=== PATIENT | female | born 1990 | race Caucasian/White ===

== ENCOUNTER 2016-02-18 14:31 | Emergency (ER) | payer MEDICAID ==
[~2016-02-18] VITALS: Ht 162.6 cm; Wt 45.4 kg
[~2016-02-18 14:31] MED LIST: MOTRIN 600MG.600 MG PO; ZOFRAN ODT4 MG PO
--- NOTE | 2016-02-18 16:00 | Emergency Room Report ---
History of Present Illness Time Seen by MD Hughes Presenting Problem in Triage Pt arrived:Walked Presenting Problem:PT STATES PRODUCTIVE COUGH WITH YELLOW/WHITE SPUTUM FOR TWO WEEKS. STATES HISTORY OF PLEURISY AND STATES PAIN AND COUGH FEEL THE SAME. DENIES ANY OTHER SYMPTOMS. STATES CHEST TIGHTNESS AND PAIN WHEN SHE COUGHS. Onset of symptoms date/time:/ or onset unknown for:MEDICAL HX UNKNOWN Treatment Prior to Arrival: PT STATES TAKING NAPROXEN AT [employer] Provided by: SELF Sepsis Risk Assessment: Temp: 98.2 B/P: 109/58 MAP: 87 Pulse: 65 Resp: 16 Recent fever? N Clinical Suspician of Infection? N Mental Status: 1 - Regular (Normal Baseline) Sepsis Risk:Low Sepsis Risk Have you (or family members/close friends) recently traveled outside the [place]? N If Yes, where/when: Have you had exposure to infectious disease within the past month? N TB? Other? Specify: Comment The patient complains of chest pain. She says she got sick 2 weeks ago with a cough. She is coughing up "clearish yellow". No fever. One week ago she developed chest pain on the RIGHT side of her chest that increases with coughing , movement, and breathing. She has had pleurisy in the past and this feels the same. ALLERGIES Coded Allergies: hydrocodone (NA-NAUSEA 09/24/15) History Medical History General CAD? No Angina: No FL: No Hypertension? No Hyperlipidemia? No CHF? No DVT? No PE? No COPD? No Asthma? No Anemia? No GERD? No Gastric ulcers? No GI Bleed? No Hernia? No Thyroid Problems? No Hypothyroidism? No CVA? No Seizures? No Diabetes? No Renal Insuffiency? No End Stage Renal Disease? No UTI? No Stones? No GB Disease: No Nephritic Syndrome? No Asplenia? No Hepatitis? No Sickle Cell Disease? No Arthritis? No Migraines? No Cataracts? No Glaucoma? No MRSA? No HIV? No TB? No Anxiety? No Depression? No Cancer? No More? No Immunization Hx DT/Tetanus Unknown Surgical Hx Previous Surgery?Y TUBAL RATE MARKER Hx LMP Now Social History Smoking Hx Smoker: Current Some Day Smoker Tobacco: Yes Type Cigarettes Alcohol Alcohol: No Review of Systems All Other Systems Reviewed and Negative Constitutional denies fever Respiratory cough Cardiovascular chest pain Physical Exam Vital Signs Vital Signs Date Time Temp Pulse Resp B/P Pulse O2 O2 Flow FiO2 Ox Delivery Rate 02/17 1526 65 16 109/58 100 02/17 1435 98.2 60 20 117/72 97 General Appearance normal appearance, WD/WN, sitting upright using cellular phone, no acute distress Eye Exam - bilateral eye normal exam, bilateral eye PERRL, bilateral eye EOMI Ear, Nose, Throat hearing grossly normal, normal ENT inspection Neck normal inspection, non-tender, supple, full range of motion Respiratory Status Yes: trachea midline, chest symmetrical, tender on palpation (reproducible RIGHT chest). No: respiratory distress. Lung Sounds bilateral: normal breath sounds, lungs clear. Cardiovascular normal exam, regular rate/rhythm, no peripheral edema, no gallop, no JVD, no murmur, no rub, normal peripheral pulses Peripheral Pulses Pulses normal Yes Gastrointestinal normal bowel sounds, normal exam, non tender, soft, no organomegaly Back normal inspection, no CVA tenderness, no vertebral tenderness Extremities non-tender, normal range of motion, normal inspection Neurologic alert, oriented x 3 Mental status normal mood/affect Skin intact, normal color, warm/dry Medical Decision Making LABS/Meds/Orders Pt receiving controlled substance in ED? No Results/Orders Orders Procedure Date/time Status CHEST(2 VIEWS-NOT PORTABLE) 02/17 1441 Active URINE 02/17 1441 Complete XRAY/CT/US XRAY/CT/US XRAY chest Comment X-ray interpreted by Iraj Tenorio M.D. No infiltrate, pneumothorax, pleural effusion, or wide mediastinum. Departure Departure Disposition DC Home or Self Care(routine) Clinical Impression Primary Impression: Acute bronchitis Qualifiers: Bronchitis organism: unspecified organism Qualified Code: J20.9 - Acute bronchitis, unspecified Secondary Impressions: Chest wall pain, Pleurisy Condition STABLE Referrals QUENTIN CARTAGENA (Family) Patient Instructions DI for Acute Bronchitis, DI for Pleurisy Additional Instructions Additional instructions for ACUTE BRONCHITIS: Antibiotics are not recommended for acute bronchitis. Use Tylenol or Ibuprofen of pain or fever. Rest and plenty of fluids. Return immediately if you have an uncontrollable fever greater than 102 degrees, severe headache or neck stiffness , difficulty breathing or shortness of breath, persistent vomiting, severe sore throat or inability to swallow. See your physician if not improving in 4-5 days. Prescriptions Current Visit Scripts Naproxen (Naprosyn 500MG Tab) 500 MG PO BID #14 TAB Benzonatate (Tessalon Perle) 100 MG PO TID #15 SGL ED Critical Care Critical Care No at 1604
[2016-02-18] MEDS ORDERED: NAPROSYN500 M1 PO (16:08)
[2016-02-18] MEDS ORDERED: TESSALON PERLE100 M1 PO (16:08)
[2016-02-18 16:12] VITALS: BP 114/69
--- NOTE | 2016-02-18 17:06 | RADIOLOGY REPORT PS360 ---
CHEST(2 VIEWS-NOT PORTABLE) HISTORY: Cough with chest pain COUGH COMPARISON: None available FINDINGS: The cardiomediastinal silhouette and pulmonary vascularity are within normal limits. The lungs are clear without infiltrates, suspicious nodules, or pleural effusions. No acute bony abnormalities. Mild pectus deformity. Calcified granuloma right lung base. Body jewelry artifact IMPRESSION: Negative chest, no acute finding
== END 2016-02-18 16:12 | disposition home or self-care (01) ==
LOC: ER 14:31
DX: J20.9 Acute bronchitis, unspecified (principal); Z72.0 Tobacco use